=== PATIENT | male | born 1955 | race Caucasian/White ===

== ENCOUNTER 2019-09-04 05:06 | Inpatient (IN) ==
[2019-09-04] MEDS ORDERED: SODIUM CHLORIDE 0.9% 2,000 ML IV STA (05:31)
[2019-09-04] MEDS ORDERED: LEVOFLOXACIN INJ 500 MG in PREMIX 1 EACH IV STA (06:02)
[2019-09-04 06:13] LABS: Hematocrit 22.5 VOL% (42.0-52.0); Hemoglobin 7.4 GM/DL (14.0-18.0); Lymphocytes # 0.1 10*3/uL (1.4-4.0); Lymphocytes % 10.1 % (21.2-54.2); Mean Corpuscular HGB Conc 32.9 GM/DL (32-36); Mean Corpuscular Volume 85.2 FL (87-102); Monocytes % 15.9 % (1.7-12.7); Platelet Count 96 T/CUMM (130-400); Red Blood Count 2.64 MC/CUMM (3.8-5.5); Red Cell Distribution Width 18.9 % (9.3-17.3)
[2019-09-04 06:17] LABS: White Blood Count 0.7 T/CUMM (4-12)
[2019-09-04 06:18] LABS: ABG Base Excess -4.4 MMOL/L (-2.5-2.5); ABG HCO3 20.7 MMOL/L (20-26); ABG Oxygen Saturation 95.7 % (95-100); ABG PCO2 52.3 MM HG (35-48); ABG PH 7.252 (7.35-7.45); ABG TCO2 21.7 MMOL/L (23-27); Allen Test Positive
[2019-09-04] MEDS ORDERED: VANCOMYCIN INJ 1,000 MG in SODIUM CHLORIDE 0.9% 250 ML IV STA (06:24)
[2019-09-04] MEDS ORDERED: FILGRASTIM-SNDZ 300 MCG/0.5 ML SYRINGE SUBCUT ONE (06:26)
[2019-09-04] MEDS ORDERED: SODIUM CHLORIDE 0.9% 1,000 ML IV STA (06:29)
[2019-09-04 06:34] LABS: Alanine Aminotransferase 18 U/L (16-61); Albumin 2.1 G/DL (3.4-5.0); Alkaline Phosphatase 100 U/L (45-117); Aspartate Amino Transferase 33 U/L (0-37); Blood Urea Nitrogen 29 MG/DL (7-18); Calcium 8.2 MG/DL (8.5-10.1); Estimated Glom Filtration Rate 58 ML/MIN; Glucose 85 MG/DL (74-106); Osmolality,Calculated 246.2 MOS/KG (273-304); Total Protein 6.3 G/DL (6.4-8.3)
[2019-09-04 06:36] LABS: Band Neutrophils 22 % (0-10); Lymphocytes 18 % (20-55); Metamyelocytes 6 %; Myelocytes 12 %; Segmented Neutrophils 24 % (50-85); Total Cells Counted 100
[2019-09-04 06:37] LABS: Acanthocytes Few; Anisocytosis 1+; Hypochromasia 1+; Ovalocytes Few; Platelet Estimate Adequate
[2019-09-04] MEDS ORDERED: SODIUM CHLORIDE 0.9% 2,400 ML IV ONE (06:41)
[2019-09-04] MEDS ORDERED: MIDAZOLAM 100 MG in SODIUM CHLORIDE 0.9% 80 ML IV PRN (06:42)
[2019-09-04] MEDS ORDERED: ALBUTEROL 2.5 MG/3 ML NEB RESP TX PRN (06:42)
[2019-09-04] MEDS ORDERED: HYDROCORTISONE 100 MG VIAL IV STA (06:51)
[2019-09-04] MEDS ORDERED: NOREPINEPHRINE 8 MG in SODIUM CHLORIDE 0.9% 242 ML IV SCH (07:00)
[2019-09-04] MEDS ORDERED: PROPOFOL 1,000 MG/100 ML BOTTLE IV SCH (07:00)
[2019-09-04] MEDS ORDERED: SODIUM CHLORIDE 0.9% 400 ML IV STA (07:09)
[2019-09-04 07:10] LABS: Risk Ratio 2.63; Thyroid Stimulating Hormone 43.4 uIU/ml (0.358-3.74); VLDL CHOLESTEROL 14.8 MG/DL
[2019-09-04] MEDS ORDERED: SODIUM CHLORIDE 0.9% 500 ML IV STA (07:16)
[2019-09-04] MEDS ORDERED: GENTAMICIN INJ 500 MG in SODIUM CHLORIDE 0.9% 100 ML IV SCH (11:00)
[2019-09-04] MEDS: SODIUM CHLORIDE 0.9% 1,000 ML IV SCH ×2 (12:10→21:21)
[2019-09-04] MEDS: FAMOTIDINE 20 MG/2 ML VIAL IV SCH ×2 (12:10→21:20)
[2019-09-04] MEDS: FLUDROCORTISONE 0.1 MG TABLET PO SCH ×2 (12:15→21:20)
[2019-09-04] MEDS: AZTREONAM 2,000 MG in SYRINGE 1 EACH IV SCH ×3 (12:15→22:34)
[2019-09-04] MEDS ORDERED: SODIUM CHLORIDE 0.9% 1,000 ML IV PRN (12:28)
[2019-09-04] MEDS ORDERED: PROPOFOL 1,000 MG/100 ML BOTTLE IV PRN (13:11)
[2019-09-04 15:10] LABS: Pt O2 Delivery Device Other
[2019-09-04 15:12] LABS: ABG Base Excess -3.1 MMOL/L (-2.5-2.5); ABG HCO3 21.7 MMOL/L (20-26); ABG Oxygen Saturation 93.6 % (95-100); ABG PH 7.212 (7.35-7.45); ABG PO2 75.8 MM HG (80-95); ABG TCO2 24.2 MMOL/L (23-27)
[2019-09-04] MEDS ORDERED: ACETAMINOPHEN 325 MG/10.15 ML UDCUP PO PRN (16:55)
[2019-09-04] MEDS: HYDROCORTISONE 100 MG VIAL IV SCH ×2 (17:04→21:24)
[2019-09-04] MEDS ORDERED: NOREPINEPHRINE 4 MG/4 ML VIAL IV ONE (17:17)
[2019-09-04] MEDS: NOREPINEPHRINE 8 MG in SODIUM CHLORIDE 0.9% 242 ML IV PRN (17:35)
[2019-09-04] MEDS: VANCOMYCIN INJ 1,250 MG in SODIUM CHLORIDE 0.9% 250 ML IV SCH (19:16)
[2019-09-04 19:32] LABS: Apearance,Urine CLOUDY (Clear); Bacteria,Urine Occasional /HPF (Few); Bilirubin,Urine Negative (Negative); Blood, Urine Large mg/dL (Negative); Glucose,Urine (UA) Negative (Negative); Ketones,Urine Negative (Negative); Mucus,Urine Occasional /LPF (Occasional); Nitrite,Urine Negative (Negative); Protein,Urine 100 MG/DL; RBC,Urine 4 /HPF (0-4); Squamous Epithelial Cell,Urine Occasional /HPF (0-10); Urine Color Yellow (Yellow); Urine Urobilinogen < 2.0 EU/DL (0.2-1.0); WBC,Urine 9 /HPF (0-6)
[2019-09-04] MEDS ORDERED: FUROSEMIDE 40 MG/4 ML VIAL IV ONE (20:07)
[2019-09-05 03:42] LABS: ABG Base Excess -5.4 MMOL/L (-2.5-2.5); ABG HCO3 19.9 MMOL/L (20-26); ABG Oxygen Saturation 93.4 % (95-100); ABG PO2 73.9 MM HG (80-95); ABG TCO2 24.4 MMOL/L (23-27); Allen Test Positive; Pt O2 Delivery Device BIPAP
[2019-09-05 03:53] LABS: ABG PH 7.127 (7.35-7.45)
[2019-09-05 03:54] LABS: ABG PCO2 77.9 MM HG (35-48)
[2019-09-05 04:20] LABS: Basophils % 0.8 % (0.0-0.8); Hematocrit 31.9 VOL% (42.0-52.0); Hemoglobin 10.2 GM/DL (14.0-18.0); Immature Granulocytes % 4.7 %; Immature Granulocytes Absolute 0.06 #; Lymphocytes # 0.1 10*3/uL (1.4-4.0); Lymphocytes % 4.7 % (21.2-54.2); Mean Corpuscular Volume 88.1 FL (87-102); Mean Platelet Volume 10.3 FL (9.6-12.0); Monocytes % 3.9 % (1.7-12.7); Neutrophils % 85.9 % (38.7-73.9); Platelet Count 85 T/CUMM (130-400); Red Blood Count 3.62 MC/CUMM (3.8-5.5); Red Cell Distribution Width 17.9 % (9.3-17.3); White Blood Count 1.3 T/CUMM (4-12)
[2019-09-05 04:29] LABS: Bilirubin,Total 0.5 MG/DL (0.2-1.0); Calcium 8.1 MG/DL (8.5-10.1); Osmolality,Calculated 255.5 MOS/KG (273-304); Total Protein 6.2 G/DL (6.4-8.3)
[2019-09-05 04:44] LABS: Prealbumin 7.5 MG/DL (20-40)
[2019-09-05 04:58] LABS: Band Neutrophils 19 % (0-10); Lymphocytes 5 % (20-55); Metamyelocytes 3 %; Myelocytes 1 %; Segmented Neutrophils 67 % (50-85); Total Cells Counted 100
[2019-09-05 04:59] LABS: Anisocytosis 1+; Hypochromasia Slight; Microcytosis 1+; Platelet Estimate Decreased
[2019-09-05 05:00] LABS: Ovalocytes Slight; Polychromasia Slight
[2019-09-05] MEDS ORDERED: DEXTROSE 10% 250 ML IV ONE (05:10)
[2019-09-05] MEDS: DEXTROSE 10% 250 ML IV PRN ×3 (05:14→15:28)
[2019-09-05] MEDS: SODIUM CHLORIDE 0.9% 1,000 ML IV SCH ×2 (05:15→05:31)
[2019-09-05] MEDS: AZTREONAM 2,000 MG in SYRINGE 1 EACH IV SCH ×4 (05:30→22:31)
[2019-09-05] MEDS ORDERED: MORPHINE 4 MG/1 ML VIAL IV PRN (05:47)
[2019-09-05] MEDS ORDERED: MORPHINE 4 MG/1 ML VIAL ONE (05:56)
[2019-09-05] MEDS: HYDROCORTISONE 100 MG VIAL IV SCH ×3 (06:03→22:28)
[2019-09-05] MEDS: VANCOMYCIN INJ 1,250 MG in SODIUM CHLORIDE 0.9% 250 ML IV SCH ×2 (06:03→17:31)
[2019-09-05] MEDS: LEVOTHYROXINE 100 MCG VIAL IV SCH (06:22)
[2019-09-05] MEDS: LEVOFLOXACIN INJ 500 MG in PREMIX 1 EACH IV SCH (06:22)
[2019-09-05] MEDS ORDERED: FUROSEMIDE 40 MG/4 ML VIAL IV ONE (06:49)
[2019-09-05] MEDS ORDERED: NOREPINEPHRINE 4 MG/4 ML VIAL IV ONE (07:10)
[2019-09-05] MEDS: NOREPINEPHRINE 8 MG in SODIUM CHLORIDE 0.9% 242 ML IV PRN ×4 (07:16→22:37)
[2019-09-05] MEDS ORDERED: POTASSIUM CHLORIDE RIDER 20 MEQ in PREMIX 1 EACH IV PRN (07:41)
[2019-09-05] MEDS ORDERED: POTASSIUM CHLORIDE RIDER 10 MEQ in PREMIX 1 EACH IV PRN (07:41)
[2019-09-05] MEDS ORDERED: MAGNESIUM SULF RIDER 4 GM in PREMIX 1 EACH IV PRN (07:41)
[2019-09-05] MEDS ORDERED: FUROSEMIDE 40 MG/4 ML VIAL ONE (07:53)
[2019-09-05] MEDS ORDERED: MAGNESIUM SULF RIDER 50 ML IV ONE ×2 (08:51→13:41)
[2019-09-05] MEDS: FLUDROCORTISONE 0.1 MG TABLET PO SCH ×2 (08:57→21:32)
[2019-09-05] MEDS: MAGNESIUM SULF RIDER 2 GM in PREMIX 1 EACH IV PRN ×2 (08:58→14:00)
[2019-09-05] MEDS ORDERED: FILGRASTIM-SNDZ 300 MCG/0.5 ML SYRINGE SUBCUT SCH (09:00)
[2019-09-05] MEDS: FAMOTIDINE 20 MG/2 ML VIAL IV SCH ×2 (09:40→22:26)
[2019-09-05] MEDS ORDERED: LIDOCAINE 1%/EPI INJ 20 ML VIAL ONE (12:07)
[2019-09-05 12:57] LABS: ABG HCO3 17.8 MMOL/L (20-26); ABG Oxygen Saturation 87.9 % (95-100); ABG PO2 60.1 MM HG (80-95); ABG TCO2 24.7 MMOL/L (23-27); Allen Test Positive; Pt O2 Delivery Device Ventilator
[2019-09-05 13:00] LABS: ABG PCO2 95.1 MM HG (35-48); ABG PH 7.036 (7.35-7.45)
[2019-09-05 14:58] LABS: ABG Base Excess -6.3 MMOL/L (-2.5-2.5); ABG HCO3 19.2 MMOL/L (20-26); ABG Oxygen Saturation 94.6 % (95-100); ABG PO2 74.5 MM HG (80-95); ABG TCO2 23.2 MMOL/L (23-27); Allen Test Positive; Pt O2 Delivery Device Ventilator
[2019-09-05 15:05] LABS: ABG PCO2 73.7 MM HG (35-48); ABG PH 7.131 (7.35-7.45)
[2019-09-05] MEDS: DEXTROSE 10% 1,000 ML IV SCH (15:51)
[2019-09-05 16:12] LABS: Apearance,Urine CLOUDY (Clear); Bilirubin,Urine Negative (Negative); Blood, Urine Large mg/dL (Negative); Glucose,Urine (UA) Negative (Negative); Ketones,Urine Negative (Negative); Mucus,Urine Occasional /LPF (Occasional); Nitrite,Urine Negative (Negative); Protein,Urine 30 MG/DL; RBC,Urine 72 /HPF (0-4); Squamous Epithelial Cell,Urine Occasional /HPF (0-10); Urine Color Yellow (Yellow); Urine Specific Gravity 1.013 (1.001-1.035); Urine Urobilinogen < 2.0 EU/DL (0.2-1.0); WBC,Urine 1 /HPF (0-6)
[2019-09-05] MEDS ORDERED: LACTATED RINGERS 500 ML IV ONE (16:58)
[2019-09-05] MEDS: LACTATED RINGERS 1,000 ML IV SCH (17:38)
[2019-09-05] MEDS: fentaNYL INJ 1,250 MCG in SODIUM CHLORIDE 0.9% 225 ML IV PRN (18:17)
[2019-09-05] MEDS: dilTIAZem Drip 125 MG/125 ML PREMIX IV SCH (19:11)
[2019-09-06] MEDS: LACTATED RINGERS 1,000 ML IV SCH ×4 (01:47→22:59)
[2019-09-06] MEDS: NOREPINEPHRINE 8 MG in SODIUM CHLORIDE 0.9% 242 ML IV PRN ×2 (02:09→05:31)
[2019-09-06 03:56] LABS: Basophils % 0.6 % (0.0-0.8); Eosinophils % 0.2 % (0.00-10.9); Hematocrit 30.8 VOL% (42.0-52.0); Hemoglobin 9.9 GM/DL (14.0-18.0); Immature Granulocytes % 4.2 %; Immature Granulocytes Absolute 0.27 #; Lymphocytes # 0.1 10*3/uL (1.4-4.0); Lymphocytes % 1.2 % (21.2-54.2); Mean Corpuscular HGB Conc 32.1 GM/DL (32-36); Mean Corpuscular Volume 87.7 FL (87-102); Mean Platelet Volume 9.5 FL (9.6-12.0); Monocytes % 2.5 % (1.7-12.7); NRBC # 0.02 10*3/uL; Neutrophils % 91.3 % (38.7-73.9); Red Blood Count 3.51 MC/CUMM (3.8-5.5); Red Cell Distribution Width 18.6 % (9.3-17.3); White Blood Count 6.5 T/CUMM (4-12)
[2019-09-06 04:03] LABS: Platelet Count 39 T/CUMM (130-400)
[2019-09-06 04:22] LABS: Albumin 1.5 G/DL (3.4-5.0); Bilirubin,Total 0.5 MG/DL (0.2-1.0); Calcium 8.2 MG/DL (8.5-10.1); Osmolality,Calculated 266.1 MOS/KG (273-304); Total Protein 5.3 G/DL (6.4-8.3)
[2019-09-06 04:23] LABS: Band Neutrophils 75 % (0-10); Eosinophils 1 % (0-10); Lymphocytes 6 % (20-55); Metamyelocytes 13 %; Myelocytes 2 %; Nucleated Red Blood Cells 1 (0-5); Total Cells Counted 100
[2019-09-06 04:25] LABS: Platelet Estimate Decreased
[2019-09-06 04:26] LABS: Anisocytosis 2+; Burr Cells 1+; Poikilocytosis 1+
[2019-09-06 04:33] LABS: Basophils # 0.1 10*3/uL (0.0-0.2); Basophils % 1.1 % (0.0-0.8); Eosinophils % 0.2 % (0.00-10.9); Hematocrit 30.4 VOL% (42.0-52.0); Hemoglobin 9.9 GM/DL (14.0-18.0); Immature Granulocytes % 2.7 %; Immature Granulocytes Absolute 0.18 #; Lymphocytes # 0.1 10*3/uL (1.4-4.0); Lymphocytes % 1.5 % (21.2-54.2); Mean Corpuscular HGB Conc 32.6 GM/DL (32-36); Mean Corpuscular Volume 87.6 FL (87-102); Mean Platelet Volume 9.8 FL (9.6-12.0); Monocytes % 2.9 % (1.7-12.7); NRBC # 0.02 10*3/uL; Neutrophils % 91.6 % (38.7-73.9); Red Blood Count 3.47 MC/CUMM (3.8-5.5); Red Cell Distribution Width 18.6 % (9.3-17.3); White Blood Count 6.6 T/CUMM (4-12)
[2019-09-06 04:36] LABS: Platelet Count 37 T/CUMM (130-400)
[2019-09-06 04:42] LABS: ABG Base Excess -8.9 MMOL/L (-2.5-2.5); ABG HCO3 17.2 MMOL/L (20-26); ABG PO2 83.4 MM HG (80-95); ABG TCO2 22.4 MMOL/L (23-27); Allen Test Positive; Pt O2 Delivery Device Ventilator
[2019-09-06 04:48] LABS: ABG PH 7.061 (7.35-7.45)
[2019-09-06 04:49] LABS: ABG PCO2 81.5 MM HG (35-48)
[2019-09-06 04:56] LABS: Anisocytosis 2+; Band Neutrophils 75 % (0-10); Burr Cells 1+; Eosinophils 1 % (0-10); Lymphocytes 6 % (20-55); Metamyelocytes 13 %; Myelocytes 2 %; Nucleated Red Blood Cells 1 (0-5); Poikilocytosis 1+; Total Cells Counted 100
[2019-09-06] MEDS: AZTREONAM 2,000 MG in SYRINGE 1 EACH IV SCH ×4 (05:10→22:10)
[2019-09-06] MEDS ORDERED: SODIUM BICARBONATE 50 MEQ/50 ML VIAL IV ONE ×2 (05:51→23:45)
[2019-09-06] MEDS: VANCOMYCIN INJ 1,250 MG in SODIUM CHLORIDE 0.9% 250 ML IV SCH (06:17)
[2019-09-06] MEDS: HYDROCORTISONE 100 MG VIAL IV SCH ×3 (06:18→22:12)
[2019-09-06] MEDS: LEVOTHYROXINE 100 MCG VIAL IV SCH (06:22)
[2019-09-06] MEDS: LEVOFLOXACIN INJ 500 MG in PREMIX 1 EACH IV SCH (07:32)
[2019-09-06 07:53] LABS: ABG Base Excess -7.2 MMOL/L (-2.5-2.5); ABG HCO3 18.5 MMOL/L (20-26); ABG Oxygen Saturation 95.7 % (95-100); ABG TCO2 22.2 MMOL/L (23-27); Allen Test Positive; Pt O2 Delivery Device Ventilator
[2019-09-06 07:54] LABS: ABG PCO2 70.6 MM HG (35-48); ABG PH 7.125 (7.35-7.45)
[2019-09-06] MEDS: NOREPINEPHRINE 16 MG in SODIUM CHLORIDE 0.9% 234 ML IV PRN ×3 (09:03→22:47)
[2019-09-06] MEDS: FAMOTIDINE 20 MG/2 ML VIAL IV SCH ×2 (09:10→22:10)
[2019-09-06] MEDS: FLUDROCORTISONE 0.1 MG TABLET PO SCH ×2 (09:14→21:06)
[2019-09-06] MEDS: DEXTROSE 10% 1,000 ML IV SCH ×3 (09:50→18:35)
[2019-09-06] MEDS: fentaNYL INJ 1,250 MCG in SODIUM CHLORIDE 0.9% 225 ML IV PRN ×2 (10:09→22:45)
[2019-09-06] MEDS: dilTIAZem Drip 125 MG/125 ML PREMIX IV SCH (10:10)
[2019-09-06] MEDS: AMIODARONE INJ 150 MG in DEXTROSE 5% 100 ML IV SCH ×3 (11:28→22:20)
[2019-09-06] MEDS ORDERED: DIGOXIN 0.5 MG/2 ML AMP IV ONE (14:01)
[2019-09-06] MEDS: AMIODARONE INJ 450 MG in DEXTROSE 5% 241 ML IV SCH (14:30)
[2019-09-06 18:19] LABS: Troponin I < 0.015 NG/ML (0.00-0.045)
[2019-09-06] MEDS ORDERED: FUROSEMIDE 40 MG/4 ML VIAL IV ONE (23:28)
[2019-09-06 23:41] LABS: ABG Base Excess -9.5 MMOL/L (-2.5-2.5); ABG HCO3 16.5 MMOL/L (20-26); ABG Oxygen Saturation 74.4 % (95-100); ABG TCO2 21.3 MMOL/L (23-27)
[2019-09-06 23:43] LABS: ABG PCO2 75.1 MM HG (35-48); ABG PH 7.073 (7.35-7.45); ABG PO2 40.2 MM HG (80-95)
[2019-09-07] MEDS: PHENYLEPHRINE DRIP 40 MG/250 ML PREMIX IV PRN ×2 (00:52→04:01)
[2019-09-07 03:31] LABS: ABG Base Excess -9.8 MMOL/L (-2.5-2.5); ABG HCO3 16.2 MMOL/L (20-26); ABG Oxygen Saturation 67.4 % (95-100); ABG TCO2 22.2 MMOL/L (23-27)
[2019-09-07 03:38] LABS: ABG PH 7.037 (7.35-7.45)
[2019-09-07 03:39] LABS: ABG PCO2 84.2 MM HG (35-48); ABG PO2 36.6 MM HG (80-95)
[2019-09-07 03:41] LABS: Eosinophils % 0.2 % (0.00-10.9); Hematocrit 29.5 VOL% (42.0-52.0); Hemoglobin 9.3 GM/DL (14.0-18.0); Immature Granulocytes % 2.6 %; Immature Granulocytes Absolute 0.29 #; Lymphocytes # 0.3 10*3/uL (1.4-4.0); Lymphocytes % 2.3 % (21.2-54.2); Mean Corpuscular HGB Conc 31.5 GM/DL (32-36); Mean Corpuscular Volume 88.6 FL (87-102); Monocytes % 4.8 % (1.7-12.7); NRBC # 0.04 10*3/uL; Neutrophils % 90.1 % (38.7-73.9); Red Blood Count 3.33 MC/CUMM (3.8-5.5); Red Cell Distribution Width 19.1 % (9.3-17.3); White Blood Count 11.1 T/CUMM (4-12)
[2019-09-07 03:46] LABS: Platelet Count 12 T/CUMM (130-400)
[2019-09-07 03:49] LABS: Troponin I < 0.015 NG/ML (0.00-0.045)
[2019-09-07] MEDS ORDERED: VECURONIUM 10 MG VIAL IV ONE ×2 (03:51→03:59)
[2019-09-07] MEDS ORDERED: PHENYLEPHRINE INJ 160 MG in SODIUM CHLORIDE 0.9% 234 ML IV PRN (03:58)
[2019-09-07] MEDS ORDERED: SODIUM BICARBONATE 50 MEQ/50 ML VIAL IV ONE (04:10)
[2019-09-07 04:20] LABS: Band Neutrophils 49 % (0-10); Lymphocytes 5 % (20-55); Metamyelocytes 20 %; Myelocytes 2 %; Platelet Estimate Decreased; Segmented Neutrophils 20 % (50-85); Total Cells Counted 100
[2019-09-07 04:21] LABS: Acanthocytes 2+; Anisocytosis 2+; Hypochromasia 2+; Ovalocytes 1+; Polychromasia 2+
[2019-09-07] MEDS ORDERED: SODIUM CHLORIDE 0.9% 1,000 ML IV PRN (04:29)
[2019-09-07] MEDS ORDERED: SODIUM BICARB INJ 150 MEQ in STERILE WATER INJ 850 ML IV SCH (04:30)
[2019-09-07 04:33] LABS: Albumin 1.3 G/DL (3.4-5.0); Bilirubin,Total 0.5 MG/DL (0.2-1.0); Calcium 7.4 MG/DL (8.5-10.1); Osmolality,Calculated 280.2 MOS/KG (273-304)
[2019-09-07] MEDS: AZTREONAM 2,000 MG in SYRINGE 1 EACH IV SCH (04:49)
[2019-09-07 05:01] LABS: ABG Base Excess -7.5 MMOL/L (-2.5-2.5); ABG HCO3 17.8 MMOL/L (20-26); ABG Oxygen Saturation 62.3 % (95-100); ABG TCO2 24.2 MMOL/L (23-27)
[2019-09-07 05:06] LABS: ABG PCO2 87.6 MM HG (35-48); ABG PH 7.057 (7.35-7.45); ABG PO2 33.5 MM HG (80-95)
[2019-09-07] MEDS: NOREPINEPHRINE 16 MG in SODIUM CHLORIDE 0.9% 234 ML IV PRN (05:27)
[2019-09-07 06:15] VITALS: BP 58/28
[2019-09-07] MEDS: HYDROCORTISONE 100 MG VIAL IV SCH (06:44)
[2019-09-07] MEDS: AMIODARONE INJ 450 MG in DEXTROSE 5% 241 ML IV SCH (07:30)
[2019-09-07] MEDS: LEVOTHYROXINE 100 MCG VIAL IV SCH (07:31)
== END 2019-09-07 07:50 | disposition expired | DRG 853 ==
LOC: SUATTDRO → N.ED 05:06 → N.EDINP 06:43 → N.ICU 09:40
PROVIDERS: ADMIT Internal Medicine; ATTEND Internal Medicine